=== PATIENT | male | born 1995 | race Caucasian/White ===

== ENCOUNTER → 2019-11-15 15:10 | Outpatient (CLI) | payer BC, SELFPAY ==
--- NOTE | ~2019-11-15 | XR_ITS ---
EXAMINATION: XR toe 1st RT min 2V INDICATION: Right first toe pain TECHNIQUE: Three views of the right first toe are obtained. COMPARISON: None available FINDINGS: There is soft tissue swelling of the first toe. No displaced fracture is identified. The jenna int spaces are normal. IMPRESSION: 1. No acute osseous abnormality. Reviewed, dictated and finalized at location A.
== END ==
PROVIDERS: PCP Internal Medicine; Visit Provider Internal Medicine
DX: M79.674 Pain in right toe(s) (principal)
CPT/HCPCS: 73660

== ENCOUNTER 2021-08-17 23:13 | Emergency (ER) | payer BC, SELFPAY ==
[2021-08-17 23:15] VITALS: BP 161/102; PULSE 89; RESP 17; TEMP 36.2; O2SAT 100
--- NOTE | 2021-08-17 23:42 | ED_ITS ---
HPI - Extremity Problem General Chief complaint: Extremity Problem,Nontraumatic Stated complaint: Left calf pain, recent travel Time Seen by Provider: 08/17/21 23:29 History of Present Illness HPI Narrative: 26-year-old male presents to the emergency room complaints of left calf pain tulio t began yesterday. Patient states he was recently on multiple international flights, and is concerned he may have a DVT. Patient states his left calf pain is worse when ambulating. Patient denies any bruising or swelling to his left calf. He denies injury or trauma. He denies any history of cancer, denies history of PE or DVT. Related Data Allergies Allergy/AdvReac Type Severity Reaction Status Date / Time No Known Allergies Allergy Verified 08/17/21 23:18 [facility] Family History Family History Mother Diabetes mellitus Patient's mother is in good health Sibling Patient's sister is in good health Patient's brother is in good health Father Family history of malignant neoplasm Social History Social History Smoking status: Never smoker Alcohol intake: never Course Course Emergency Course: GENERAL: Well-appearing, well-nourished, no physical limitations, and in no acute distress. HEAD: Normocephalic, atraumatic. EYES: Conjunctivae normal, PERRLA and EOMI. CHEST: Clear to auscultation. No respiratory distress. No wheezes rales or rhonchi. No tenderness. HEART: Regular rate and rhythm. No murmur heard. Normal peripheral pulses. EXTREMITIES: Normal range of motion. No edema. No clubbing or cyanosis. Left lower extremity: Swelling noted with tenderness over the calf, negative Homans' sign. Tenderness over the superior tendon; calf measurements are equal bilaterally SKIN: Warm, dry, no rash. No noted wounds NEURO: No focal deficits. Alert and oriented x3. MAEW. CN's II-XI intact bilaterally, normal gait PSYCH: Cooperative. Normal mood and affect. Vital Signs Vital signs: Vital Signs Temperature 36.2 C L 08/17/21 23:15 Pulse Rate 89 08/17/21 23:15 Respiratory Rate 17 08/17/21 23:15 Blood Pressure 161/102 H 08/17/21 23:15 Pulse Oximetry 100 08/17/21 23:15 Oxygen Delivery Room Air 08/17/21 23:15 Temperature 36.2 C L 08/17/21 23:15 Pulse Rate 89 08/17/21 23:15 Respiratory Rate 17 08/17/21 23:15 Blood Pressure 161/102 H 08/17/21 23:15 Pulse Oximetry 100 08/17/21 23:15 Oxygen Delivery Room Air 08/17/21 23:15 Discharge Plan Discharge Clinical Impression: Strain of left calf muscle Patient Disposition: Home, Self-Care Condition: Stable Instructions: Antibiotic Form, Leg Sprain (ED) Prescriptions: No Action atovaquone-proguanil [Malarone] 250-100 mg tablet See Rx Instructions PO .COMPLEX Qty: 26 0RF Rx Instructions: take 1 tab once daily x2 day before exposure, during time in area, and x7 days after leaving area PO Follow-up/Referrals: Kenneth Newman DO [Primary Care Provider] - Time of Disposition: 00:11
[2021-08-18 00:07] LABS: D Dimer < 0.27 ug/mL (<0.48)
[2021-08-18 00:26] VITALS: BP 154/92; PULSE 66; RESP 16; O2SAT 100
== END 2021-08-18 00:24 | disposition home or self-care (01) ==
PROVIDERS: Emergency Provider Nurse Practitioner Family; PCP Internal Medicine
DX: S86.912A Strain of unspecified muscle(s) and tendon(s) at lower leg level, left leg, initial encounter (principal); X58.XXXA Exposure to other specified factors, initial encounter
CPT/HCPCS: 36415; 85380; 99283